=== PATIENT | male | born 1960 | race African-American/Black ===

== ENCOUNTER 2023-12-20 16:32 | Inpatient (IN) | payer MEDICARE, MEDICAID ==
[~2023-12-20] VITALS: Ht 177.8 cm; Wt 128.6 kg
[2023-12-20 18:56] LABS: Basophils # (auto) 0.1 10 ^3/uL (0-0.2); Basophils % (auto) 0.6 % (0.0-2.0); Eosinophils # (auto) 0.1 10 ^3/uL (0-0.8); Eosinophils % (auto) 0.5 % (0.0-7.0); Hematocrit 38.5 % (41.0-53.0); Hemoglobin 12.7 g/dL (13.5-17.5); Lymphocytes # (auto) 1.2 10 ^3/uL (0.4-5.4); Lymphocytes % (auto) 6.6 % (10.0-50.0); Mean Corpuscular Hemoglobin 31.5 pg (28.0-32.0); Mean Corpuscular Volume 95.4 fL (80.0-100.0); Monocytes # (auto) 2.2 10 ^3/uL (0-1.3); Monocytes % (auto) 12.2 % (0.0-12.0); Neutrophils # (auto) 14.6 10 ^3/uL (1.6-8.6); Neutrophils % (auto) 80.1 % (37.0-80.0); Red Blood Cells 4.04 10^6/uL (4.5-5.90); Red Cell Distribution Width 14.8 % (11.8-14.3); White Blood Cell 18.2 10^3/uL (4.4-10.8)
[2023-12-20 19:19] LABS: Alanine Aminotransferase 46 U/L (7-40); Albumin 4.1 g/dL (3.2-4.8); Alkaline Phosphatase 116 U/L (46-116); Anion Gap 12 (5-15); Aspartate Aminotransferase 47 U/L (13-40); BUN/Creatinine Ratio 3.5 (10.0-20.0); Bilirubin, Total 0.5 mg/dL (0.2-1.0); Blood Urea Nitrogen 33 mg/dL (9-23); Carbon Dioxide 26 mmol/L (20-30); Chloride 93 mmol/L (98-107); Glucose 163 mg/dL (74-106); Potassium 3.9 mmol/L (3.5-5.1); Sodium 131 mmol/L (136-145); Total Protein 8.5 g/dL (5.7-8.2)
[2023-12-20] MEDS ORDERED: ALBUTEROL SULF 2.5 MG/0.5ML(0.5%) NEB SOLN NEB PRN (20:30)
[2023-12-20] MEDS ORDERED: DOCUSATE SOD 100 MG CAP PO PRN (20:30)
[2023-12-20] MEDS ORDERED: MORPHINE SULFATE INJ 2 MG/ml SYRG IV PRN (20:30)
[2023-12-20] MEDS ORDERED: NITROGLYCERIN 0.4 MG SL TAB SL PRN (20:30)
[2023-12-20] MEDS ORDERED: VANCOMYCIN PER PHARMACY 0 MG IV SCH (20:30)
[2023-12-20] MEDS ORDERED: IPRATROPIUM BROM 0.5 MG/2.5ML INH SOL NEB PRN (20:30)
[2023-12-20] MEDS ORDERED: ACETAMINOPHEN 325 MG TAB PO PRN (20:30)
[2023-12-20] MEDS ORDERED: HYDROcodone-ACET 5/325MG TAB PO PRN (20:30)
[2023-12-20] MEDS ORDERED: B-CO-6 PO (20:42)
[2023-12-20] MEDS ORDERED: SIMV20TA20 PO (20:42)
[2023-12-20] MEDS ORDERED: DEXTROSE (50%) 50ML SYRG IV PRN (20:45)
[2023-12-20 20:51] VITALS: BP 115/52; PULSE 116; RESP 18; O2SAT 94
[2023-12-20] MEDS: VANCOMYCIN 1GM/200ML 200 ML IV ONE (20:59)
[2023-12-20] MEDS: cefTRIAXone 2GM/50ML D5W 50 ML IV ONE (21:11)
[2023-12-20 21:12] VITALS: O2SAT 96
[2023-12-20] MEDS: ATORVASTATIN 20 MG TAB PO SCH (21:56)
[2023-12-20] MEDS: ACCU-CHEK COMFORT CURVE STRIP VI SCH (21:56)
[2023-12-20] MEDS: InsuLIN REG 1unit/0.01ml Soln (100units/ml) SC SCH (22:00)
[2023-12-20] MEDS: AMPICILLIN & SULBACTAM SODIUM 3 GM in SODIUM CHL 0.9% 100 ML IV SCH (22:12)
[2023-12-21] VITALS (9 sets, daily range): BP systolic 106–138; BP diastolic 57–82; PULSE 87–105; RESP 20–25; TEMP 97.3–99.4; O2SAT 90–99
[2023-12-21] MEDS: PANTOPRAZOLE 40 MG TAB PO SCH (06:17)
[2023-12-21 06:26] LABS: Basophils # (auto) 0.2 10 ^3/uL (0-0.2); Basophils % (auto) 0.8 % (0.0-2.0); Eosinophils # (auto) 0.2 10 ^3/uL (0-0.8); Hematocrit 35.4 % (41.0-53.0); Hemoglobin 11.5 g/dL (13.5-17.5); Lymphocytes # (auto) 1.3 10 ^3/uL (0.4-5.4); Lymphocytes % (auto) 6.5 % (10.0-50.0); Mean Corpuscular Hgb Conc. 32.5 g/dL (32.0-36.0); Mean Corpuscular Volume 95.6 fL (80.0-100.0); Monocytes # (auto) 2.7 10 ^3/uL (0-1.3); Monocytes % (auto) 13.6 % (0.0-12.0); Neutrophils # (auto) 15.3 10 ^3/uL (1.6-8.6); Neutrophils % (auto) 78.1 % (37.0-80.0); Red Blood Cells 3.71 10^6/uL (4.5-5.90); White Blood Cell 19.6 10^3/uL (4.4-10.8)
[2023-12-21 06:44] LABS: Alanine Aminotransferase 41 U/L (7-40); Alkaline Phosphatase 106 U/L (46-116); Calcium 10.6 mg/dL (8.5-10.1); Chloride 94 mmol/L (98-107)
[2023-12-21 06:45] LABS: Albumin 3.6 g/dL (3.2-4.8); Anion Gap 9 (5-15); Aspartate Aminotransferase 42 U/L (13-40); BUN/Creatinine Ratio 4.1 (10.0-20.0); Bilirubin, Total 0.4 mg/dL (0.2-1.0); Blood Urea Nitrogen 42 mg/dL (9-23); Carbon Dioxide 29 mmol/L (20-30); Glucose 184 mg/dL (74-106); Sodium 132 mmol/L (136-145); Total Protein 7.5 g/dL (5.7-8.2)
[2023-12-21] MEDS: B-COMPLEX W/ C & FOLIC ACID(NEPHROVITE TAB) PO SCH (10:33)
[2023-12-21] MEDS: ASPirin 81 mg TAB PO SCH (10:40)
[2023-12-21] MEDS ORDERED: FERR1TAB17 PO (15:41)
[2023-12-21] MEDS ORDERED: RIVA2.5T PO (15:41)
[2023-12-21] MEDS ORDERED: OMEP-448 PO (15:41)
[2023-12-21] MEDS ORDERED: TERA2CAP79 PO (15:41)
[2023-12-21] MEDS ORDERED: TIRZ2.5I SC (15:41)
[2023-12-21] MEDS ORDERED: GABA-1250 PO (15:41)
[2023-12-21] MEDS: LOPERAMIDE HCL 2 MG CAP/TAB PO PRN (23:25)
[2023-12-22] VITALS (8 sets, daily range): BP systolic 97–122; BP diastolic 35–66; PULSE 63–97; RESP 18–21; TEMP 97.7–98.6; O2SAT 92–100
[2023-12-22 06:55] LABS: Anion Gap 10 (5-15); Carbon Dioxide 26 mmol/L (20-30); Chloride 98 mmol/L (98-107); Potassium 4.5 mmol/L (3.5-5.1); Sodium 134 mmol/L (136-145)
[2023-12-22 06:57] LABS: Calcium 10.3 mg/dL (8.5-10.1)
[2023-12-22 07:00] LABS: Basophils # (auto) 0.1 10 ^3/uL (0-0.2); Basophils % (auto) 0.7 % (0.0-2.0); Eosinophils # (auto) 0.3 10 ^3/uL (0-0.8); Eosinophils % (auto) 1.6 % (0.0-7.0); Hematocrit 36.2 % (41.0-53.0); Hemoglobin 11.9 g/dL (13.5-17.5); Lymphocytes # (auto) 1.4 10 ^3/uL (0.4-5.4); Lymphocytes % (auto) 7.5 % (10.0-50.0); Mean Corpuscular Hemoglobin 31.6 pg (28.0-32.0); Mean Corpuscular Hgb Conc. 32.7 g/dL (32.0-36.0); Mean Corpuscular Volume 96.5 fL (80.0-100.0); Monocytes # (auto) 2.4 10 ^3/uL (0-1.3); Monocytes % (auto) 13.4 % (0.0-12.0); Neutrophils % (auto) 76.8 % (37.0-80.0); Red Blood Cells 3.75 10^6/uL (4.5-5.90); White Blood Cell 18.2 10^3/uL (4.4-10.8)
[2023-12-22 07:01] LABS: BUN/Creatinine Ratio 4.7 (10.0-20.0); Blood Urea Nitrogen 42 mg/dL (9-23); Glucose 171 mg/dL (74-106)
[2023-12-22] MEDS: SEVELAMER 800 MG TAB PO SCH (08:00)
[2023-12-22] MEDS: MELATONIN 5 MG TAB PO ONE (23:17)
[2023-12-23] VITALS (7 sets, daily range): BP systolic 103–146; BP diastolic 35–82; PULSE 82–103; RESP 18–19; TEMP 97.4–98.3; O2SAT 97–100
[2023-12-23 06:57] LABS: Basophils # (auto) 0.1 10 ^3/uL (0-0.2); Basophils % (auto) 0.7 % (0.0-2.0); Eosinophils # (auto) 0.3 10 ^3/uL (0-0.8); Eosinophils % (auto) 1.8 % (0.0-7.0); Hematocrit 35.1 % (41.0-53.0); Hemoglobin 11.5 g/dL (13.5-17.5); Lymphocytes # (auto) 1.5 10 ^3/uL (0.4-5.4); Lymphocytes % (auto) 8.5 % (10.0-50.0); Mean Corpuscular Hemoglobin 31.2 pg (28.0-32.0); Mean Corpuscular Hgb Conc. 32.8 g/dL (32.0-36.0); Mean Corpuscular Volume 94.9 fL (80.0-100.0); Monocytes # (auto) 2.2 10 ^3/uL (0-1.3); Monocytes % (auto) 12.5 % (0.0-12.0); Neutrophils # (auto) 13.2 10 ^3/uL (1.6-8.6); Neutrophils % (auto) 76.5 % (37.0-80.0); Nucleated Red Blood Cells % 0.1 %; Red Cell Distribution Width 14.9 % (11.8-14.3)
[2023-12-23 07:18] LABS: White Blood Cell 17.3 10^3/uL (4.4-10.8)
[2023-12-23] MEDS ORDERED: MIDAZOLAM HCL 2MG/2ML 2ml VIAL (1mg/ml) ONE (08:53)
[2023-12-23] MEDS: ceFAZolin 1GM VL ONE (08:53)
[2023-12-23] MEDS ORDERED: fentaNYL CITRATE 100 MCG/2 ML VL ONE ×3 (08:53→13:30)
[2023-12-23 09:16] LABS: Chloride 98 mmol/L (98-107); Potassium 4.3 mmol/L (3.5-5.1); Sodium 134 mmol/L (136-145)
[2023-12-23 09:17] LABS: Anion Gap 9 (5-15); Calcium 10.6 mg/dL (8.5-10.1); Carbon Dioxide 27 mmol/L (20-30)
[2023-12-23 09:22] LABS: BUN/Creatinine Ratio 4.5 (10.0-20.0); Blood Urea Nitrogen 49 mg/dL (9-23); Glucose 146 mg/dL (74-106)
[2023-12-23 09:38] LABS: INR 1.3 (0.9-1.15); Partial Thromboplastin Time 31.8 SEC (24.5-34.5); Prothrombin Time 13.5 sec (9.3-11.8)
[2023-12-23] MEDS ORDERED: PROPOFOL 10 MG/ML 20 ML IV ONE ×2 (10:32→14:22)
[2023-12-23] MEDS ORDERED: ONDANSETRON HCL 4 MG/2 ML VIAL ONE (14:22)
[2023-12-23] MEDS ORDERED: ROCURONIUM 10MG/ML 10ML VIAL IV ONE (14:23)
[2023-12-23] MEDS: VANCOMYCIN 1GM/200ML 200 ML IV ONE (22:00)
[2023-12-23] MEDS: MORPHINE SULFATE INJ 2 MG/ml SYRG IV PRN (23:34)
[2023-12-24] VITALS (8 sets, daily range): BP systolic 107–151; BP diastolic 57–79; PULSE 87–101; RESP 18–20; TEMP 97.5–98.5; O2SAT 96–99
[2023-12-24] MEDS: AMPICILLIN & SULBACTAM SODIUM 3 GM in SODIUM CHL 0.9% 100 ML IV SCH (01:00)
[2023-12-24 06:09] LABS: Hematocrit 38.9 % (41.0-53.0); Hemoglobin 12.5 g/dL (13.5-17.5); Mean Corpuscular Hemoglobin 31.9 pg (28.0-32.0); Mean Corpuscular Hgb Conc. 32.2 g/dL (32.0-36.0); Red Blood Cells 3.92 10^6/uL (4.5-5.90); Red Cell Distribution Width 15.5 % (11.8-14.3); White Blood Cell 22.1 10^3/uL (4.4-10.8)
[2023-12-24 06:12] LABS: Basophils % (manual) 0 (0.0-2.0); Blast Cells 0; Eosinophils % (manual) 0 (0-7); Metamyelocytes % 0; Myelocytes % 0; Promyelocytes % 0; Reactive Lymphocytes 0
[2023-12-24 06:22] LABS: Anion Gap 22 (5-15); Chloride 95 mmol/L (98-107); Potassium 4.3 mmol/L (3.5-5.1); Sodium 134 mmol/L (136-145)
[2023-12-24 06:23] LABS: Calcium 11.1 mg/dL (8.5-10.1)
[2023-12-24 06:24] LABS: Carbon Dioxide 17 mmol/L (20-30)
[2023-12-24 06:28] LABS: BUN/Creatinine Ratio 3.5 (10.0-20.0); Glucose 206 mg/dL (74-106)
[2023-12-24 06:36] LABS: Blood Urea Nitrogen 35 mg/dL (9-23)
[2023-12-24 06:48] LABS: Band Neutrophils % (manual) 11; Lymphocytes % (manual) 10 (10.0-50.0); Monocytes % (manual) 4 (0-12); Platelet Estimate Adequate
[2023-12-24] MEDS: ONDANSETRON HCL 4 MG/2 ML VIAL IV PRN (07:12)
[2023-12-24] MEDS: ceFAZolin 2 GM/D5W50ml 50 ML IV ONE (10:20)
[2023-12-24] MEDS: SODIUM CHL 0.9% 1000 ML BAG XX ONE ×2 (10:20)
[2023-12-24] MEDS: ROPIVACAINE 0.5% (5MG/ML) 20ML AMPULE IJ ONE (10:21)
[2023-12-24] MEDS: NEOMYCIN-BACITRACIN-POLYM 15GM TOP OINT TOP ONE (10:21)
[2023-12-24] MEDS: SUCCINYLCHOLINE CHLORIDE 20 MG/ML 10ML VIAL IV ONE (10:21)
[2023-12-25] VITALS (7 sets, daily range): BP systolic 95–151; BP diastolic 44–72; PULSE 68–98; RESP 16–20; TEMP 97.8–98.3; O2SAT 96–100
[2023-12-25] MEDS: MELATONIN 5 MG TAB PO SCH (00:22)
[2023-12-25 06:00] LABS: Basophils # (auto) 0.1 10 ^3/uL (0-0.2); Eosinophils # (auto) 0.2 10 ^3/uL (0-0.8); Lymphocytes # (auto) 0.9 10 ^3/uL (0.4-5.4); Lymphocytes % (auto) 5.1 % (10.0-50.0); Monocytes # (auto) 1.7 10 ^3/uL (0-1.3)
[2023-12-25 06:03] LABS: Basophils % (auto) 0.5 % (0.0-2.0); Eosinophils % (auto) 1.1 % (0.0-7.0); Hematocrit 40.3 % (41.0-53.0); Hemoglobin 13.5 g/dL (13.5-17.5); Mean Corpuscular Hemoglobin 31.9 pg (28.0-32.0); Mean Corpuscular Hgb Conc. 33.4 g/dL (32.0-36.0); Mean Corpuscular Volume 95.4 fL (80.0-100.0); Monocytes % (auto) 9.8 % (0.0-12.0); Neutrophils # (auto) 14.8 10 ^3/uL (1.6-8.6); Neutrophils % (auto) 83.5 % (37.0-80.0); Red Blood Cells 4.22 10^6/uL (4.5-5.90); Red Cell Distribution Width 15.2 % (11.8-14.3); White Blood Cell 17.7 10^3/uL (4.4-10.8)
[2023-12-25 06:26] LABS: Alanine Aminotransferase 19 U/L (7-40); Albumin 3.7 g/dL (3.2-4.8); Alkaline Phosphatase 103 U/L (46-116); Calcium 11.4 mg/dL (8.5-10.1); Carbon Dioxide 25 mmol/L (20-30); Chloride 93 mmol/L (98-107)
[2023-12-25 06:27] LABS: Anion Gap 19 (5-15); Aspartate Aminotransferase 20 U/L (13-40); BUN/Creatinine Ratio 4.2 (10.0-20.0); Bilirubin, Total 0.4 mg/dL (0.2-1.0); Blood Urea Nitrogen 49 mg/dL (9-23); Glucose 228 mg/dL (74-106); Potassium 3.7 mmol/L (3.5-5.1); Sodium 137 mmol/L (136-145); Total Protein 8.2 g/dL (5.7-8.2)
[2023-12-25] MEDS: LACTULOSE 20Gm/30ML SOLN PO ONE (09:30)
[2023-12-25] MEDS: SUCRALFATE 1 GM TAB PO ONE (09:30)
[2023-12-25] MEDS: METOCLOPRAMIDE HCL 5MG/ml INJ 2ml VIAL IV ONE (09:30)
[2023-12-25] MEDS: RIVAROXABAN 2.5 MG TAB PO SCH ×2 (10:00→23:17)
[2023-12-25] MEDS: SUCRALFATE 1 GM TAB PO SCH (12:05)
[2023-12-25] MEDS: SODIUM CHL 0.9% 1000 ML BAG XX ONE (12:45)
[2023-12-25] MEDS: METOCLOPRAMIDE HCL 5MG/ml INJ 2ml VIAL IV PRN (18:51)
[2023-12-25] MEDS ORDERED: MELATONIN 5 MG TAB PO SCH (22:00)
[2023-12-26] VITALS (8 sets, daily range): BP systolic 92–113; BP diastolic 42–59; PULSE 88–104; RESP 15–20; TEMP 97.7–98.3; O2SAT 94–98
[2023-12-26 06:36] LABS: Hematocrit 39.7 % (41.0-53.0); Hemoglobin 13.3 g/dL (13.5-17.5); Mean Corpuscular Hemoglobin 31.8 pg (28.0-32.0); Mean Corpuscular Hgb Conc. 33.5 g/dL (32.0-36.0); Mean Corpuscular Volume 95.1 fL (80.0-100.0); Red Blood Cells 4.18 10^6/uL (4.5-5.90); Red Cell Distribution Width 14.9 % (11.8-14.3); White Blood Cell 17.2 10^3/uL (4.4-10.8)
[2023-12-26 06:47] LABS: Anion Gap 15 (5-15); Carbon Dioxide 27 mmol/L (20-30); Chloride 94 mmol/L (98-107); Potassium 3.7 mmol/L (3.5-5.1); Sodium 136 mmol/L (136-145)
[2023-12-26 06:53] LABS: BUN/Creatinine Ratio 4.4 (10.0-20.0); Blood Urea Nitrogen 44 mg/dL (9-23); Glucose 167 mg/dL (74-106)
[2023-12-26 06:59] LABS: Basophils % (manual) 0 (0.0-2.0); Blast Cells 0; Metamyelocytes % 0; Myelocytes % 0; Promyelocytes % 0; Reactive Lymphocytes 0
[2023-12-26 08:18] LABS: Band Neutrophils % (manual) 6; Eosinophils % (manual) 3 (0-7); Lymphocytes % (manual) 9 (10.0-50.0); Monocytes % (manual) 10 (0-12)
[2023-12-26 08:19] LABS: Anisocytosis Slight; Platelet Estimate Increased
[2023-12-26] MEDS: levoFLOXacin 250 MG TAB PO ONE (23:01)
[2023-12-27 05:00] VITALS: BP 123/49; PULSE 95; RESP 18; TEMP 98.3; O2SAT 96
[2023-12-27] MEDS ORDERED: ALBUMIN 25% 100 ML IV ONE (05:45)
[2023-12-27] MEDS ORDERED: SODIUM CHL 0.9% 1000 ML BAG XX ONE (07:00)
[2023-12-27] MEDS ORDERED: NALOXONE HCL 0.4 MG/ML VIAL ONE (07:49)
[2023-12-27] MEDS ORDERED: LIDOCAINE 2%HCL (LOCAL ANESTH.) INJ 20ML MDV ONE (07:49)
[2023-12-27] MEDS ORDERED: LIDOCAINE 2% JELLY 11ml (GLYDO) ONE (07:49)
[2023-12-27] MEDS ORDERED: FLUMAZENIL 0.1 MG/ML INJ 10ML MDV IV ONE (07:49)
[2023-12-27] MEDS ORDERED: GLYCOPYRROLATE 0.2 MG/ML 1ML VIAL ONE (07:50)
[2023-12-27] MEDS ORDERED: EPINEPHrine HCL 1 MG/1 ML AMP ONE (07:50)
[2023-12-27] MEDS ORDERED: SODIUM CHLORIDE LOCK 10 ML ONE (07:50)
[2023-12-27 08:00] VITALS: PULSE 74; RESP 18; O2SAT 95
[2023-12-27 08:36] LABS: INR 1.53 (0.9-1.15); Partial Thromboplastin Time 36.7 SEC (24.5-34.5); Prothrombin Time 15.7 sec (9.3-11.8)
[2023-12-27] MEDS: MIDAZOLAM HCL 5 MG/ML-1ML VIAL ONE (09:34)
[2023-12-27] MEDS: fentaNYL CITRATE 100 MCG/2 ML VL ONE (09:34)
[2023-12-27 10:07] VITALS: O2SAT 98
[2023-12-27 11:35] VITALS: BP 102/70; PULSE 95; RESP 18; TEMP 98; O2SAT 95
[2023-12-27 13:00] VITALS: BP 101/45; PULSE 96; RESP 16; TEMP 97.9; O2SAT 98
[2023-12-27] MEDS ORDERED: SUCR1TAB PO (13:31)
[2023-12-27] MEDS ORDERED: ASPI-325 PO (13:31)
[2023-12-27] MEDS ORDERED: LEVO250T58 PO (13:31)
[2023-12-27 17:00] VITALS: BP 118/57; PULSE 96; RESP 15; TEMP 97.4; O2SAT 90
[2023-12-27] MEDS ORDERED: levoFLOXacin 250 MG TAB PO SCH (20:00)
== END 2023-12-27 18:50 | disposition home health service (06) | DRG 853 ==
LOC: ER 16:32 → TELE 20:31 → TELE-CENTR 20:32 → CENTRAL 12-23 22:37
PROVIDERS: ADMIT Internal Medicine; ATTEND Student in an Organized Health Care Education/Training Program
PROC: 5A1D70Z Performance of Urinary Filtration, Intermittent, Less than 6 Hours Per Day (ICD-10-PCS; 2023-12-21)
PROC: 0QTP0ZZ Resection of Left Metatarsal, Open Approach (ICD-10-PCS; 2023-12-23)
PROC: 0JBQ0ZZ Excision of Right Foot Subcutaneous Tissue and Fascia, Open Approach (ICD-10-PCS; 2023-12-23)
PROC: 5A1D70Z Performance of Urinary Filtration, Intermittent, Less than 6 Hours Per Day (ICD-10-PCS; 2023-12-23)
PROC: 0Y6Q0Z0 Detachment at Left 1st Toe, Complete, Open Approach (ICD-10-PCS; principal; 2023-12-23 08:57)
PROC: 0Y6U0Z0 Detachment at Left 3rd Toe, Complete, Open Approach (ICD-10-PCS; 2023-12-23 08:57)
PROC: 0Y6S0Z0 Detachment at Left 2nd Toe, Complete, Open Approach (ICD-10-PCS; 2023-12-23 08:57)
PROC: 5A1D70Z Performance of Urinary Filtration, Intermittent, Less than 6 Hours Per Day (ICD-10-PCS; 2023-12-25)
PROC: 5A1D70Z Performance of Urinary Filtration, Intermittent, Less than 6 Hours Per Day (ICD-10-PCS; 2023-12-25)
PROC: 0B9D8ZX Drainage of Right Middle Lung Lobe, Via Natural or Artificial Opening Endoscopic, Diagnostic (ICD-10-PCS; 2023-12-27)
PROC: 0BD18ZX Extraction of Trachea, Via Natural or Artificial Opening Endoscopic, Diagnostic (ICD-10-PCS; 2023-12-27)
DX: A41.9 Sepsis, unspecified organism (principal); J15.69 Pneumonia due to other Gram-negative bacteria; N18.6 End stage renal disease; J96.21 Acute and chronic respiratory failure with hypoxia; E11.52 Type 2 diabetes mellitus with diabetic peripheral angiopathy with gangrene; I12.0 Hypertensive chronic kidney disease with stage 5 chronic kidney disease or end stage renal disease; Z68.41 Body mass index [BMI] 40.0-44.9, adult; M86.8X7 Other osteomyelitis, ankle and foot; J90 Pleural effusion, not elsewhere classified; E11.22 Type 2 diabetes mellitus with diabetic chronic kidney disease; E66.01 Morbid (severe) obesity due to excess calories; E11.69 Type 2 diabetes mellitus with other specified complication; Z89.422 Acquired absence of other left toe(s); E78.5 Hyperlipidemia, unspecified; E11.40 Type 2 diabetes mellitus with diabetic neuropathy, unspecified; D75.838 Other thrombocytosis; E11.621 Type 2 diabetes mellitus with foot ulcer; L97.519 Non-pressure chronic ulcer of other part of right foot with unspecified severity; L97.529 Non-pressure chronic ulcer of other part of left foot with unspecified severity; D63.1 Anemia in chronic kidney disease; Z99.2 Dependence on renal dialysis; Z83.3 Family history of diabetes mellitus; Z79.82 Long term (current) use of aspirin
CPT/HCPCS: 36415; 71045; 71250; 73630; 80048; 80053; 80202; 82565; 82962; 83605; 85007; 85025; 85027; 85610; 85730; 86850; 86900; 86901; 87040; 87070; 87075; 87205; 87340; 90935; 93005; 96365; 96368; 97110; 97163; 97530; G0378; J0171; J0330; J0690; J1642; J1815; J2250; J2405; J2704; P9047